=== PATIENT | female | born 1995 | race Hispanic/Latino ===

== ENCOUNTER 2024-01-28 15:27 | Emergency (ER) | payer OTHER, SELFPAY ==
[2024-01-28 15:36] VITALS: BP 123/82
[2024-01-28 16:27] VITALS: BP 113/68
[2024-01-28 16:32] VITALS: BMI 25.0
--- NOTE | 2024-01-28 16:39 | ED.GENMED ---
History of Present Illness
General
Chief Complaint: Heart Rate Problem
Source: patient
Time Seen by Provider: 01/28/24 16:26
History of Present Illness
History of Present Illness:
28yoF with no significant past medical history presenting for evaluation of chest pain. Symptoms began yesterday. She reports a constant central chest pressure with intermittent sharp pains that last a second or two before resolving. Nothing seems
to make the pain worse but the pain seems to improve if she puts pressure on the chest. She had some palpitations and shortness of breath last night. She checked her Apple Watch which indicated that she was in atrial fibrillation. She has checked
the monitor several other times and the rest of the readings have been normal. She denies any dizziness or syncope. Patient was seen by a senior administrative services officer about 2 months ago for palpitations and EKG was normal at that time. No additional testing was
performed.
Phy Exam
General Physical Exam
General Presentation: well appearing and no apparent distress
General age: appears stated age
General Skin: warm and dry
General Habitus: normal
General Mental: alert
Cardiovascular Exam
Cardiovascular Exam: regular rate/rhythm, no edema and no murmur
Pulmonary Exam
Pulmonary Exam: lungs clear, no respiratory distress, no crackles, no wheezing and decreased breath sounds
Skin Exam
Skin Exam: normal color and warm/dry
Psychiatric Exam
Psychiatric Exam: normal mood/affect
Course
Orders/Labs/Results
Orders:
Orders
01/28/24 15:29
Electrocardiogram (*1) Urgent
Reason for Study: Chest Pain
EKG- Treatment ONCE
01/28/24 16:37
Electrocardiogram (*1) Urgent
Reason for Study: Chest Pain
EKG- Treatment ONCE
01/28/24 16:38
Cardiac Monitoring- Treatment ONCE
0.9% Sodium Chloride 1000 ml [Nss] 1,000 ml IV BOLUS
01/28/24 16:39
CR Chest - 2 Views Urgent
Comment:
Reason For Exam: CP
01/28/24 16:48
Complete Blood Count/With Diff Urgent
Comprehensive Metabolic Panel Urgent
Magnesium Urgent
TSH Reflex To Free T4 Urgent
Troponin I Urgent
Abnormal Lab Results
01/28/24
16:48
RBC 4.06 L 10^6/uL
(4.20-5.40)
Hct 35.3 L %
(37.0-47.0)
MPV 10.5 H fL
(7.4-10.4)
Absolute Monos (auto) 0.7 H 10^3/uL
(0.1-0.6)
Eosinophils % 6.5 H %
(0-6)
01/28/24 16:48
01/28/24 16:48
Vital Signs
Initial and Last Documented VS:
Initial Vital Signs
Temp Pulse Resp BP Pulse Ox
98.2 F 74 16 123/82 99
01/28/24 15:36 01/28/24 15:36 01/28/24 15:36 01/28/24 15:36 01/28/24 15:36
Last Documented Vital Signs
Temp Pulse Resp BP Pulse Ox
98.2 F 61 19 112/75 99
01/28/24 15:36 01/28/24 18:45 01/28/24 18:45 01/28/24 18:00 01/28/24 18:45
MDM/Problems Addressed
Differential Diagnosis Includes:
28yoF here with chest pain x 1 day. Had an episode of palpitations and SOB overnight. Apple Watch indicated afib. No other episodes of afib documented. No personal or family history of heart disease. She is afebrile and hemodynamically stable. She
is well appearing in no distress. HR 74 on arrival. Normal sinus rhythm noted on monitor. Differential diagnosis includes but is not limited to: Arrhythmia, thyroid dysfunction, electrolyte abnormality, doubt ACS
Initial ED plan: Check cardiac labs, magnesium, TSH, EKG, and chest x-ray. IV fluid bolus.
*EKG
Interpreted by ED Provider?: Yes
EKG Intrepretation Date: 01/28/24
Heart Rate: 63
Rate: normal
Rhythm: sinus
[place]: normal axis
Interval: normal interval
QRS Pattern: normal QRS
Ischemia: no ischemia
*Critical Care Note
Total Time (30-74mins, 75-104mins- exclusive of procedures): Not Applicable
Update Note
Update Note:
Labs overall unremarkable including normal electrolytes and TSH. EKG shows normal sinus rhythm without ischemic changes or ectopy and troponin is within normal limits. Chest x-ray clear. Telemetry reviewed and no episodes occurred during ED stay.
Apple Watch recording reviewed and no obvious afib noted. No indication for admission at this time. She was encouraged to f/u outpatient with cardiology. ED return precautions discussed. She was discharged in stable condition.
ED Attending Note
-
Portions of this chart may have been created with voice recognition software.� Occasional wrong word or��sound alike� substitutions may have occurred due to the inherent limitations of voice recognition software.
Discharge Plan
Departure
Patient Disposition: Home (Routine Discharge)
Date of Disposition: 01/28/24
Time of Disposition: 18:45
Patient with high blood pressure during this ER visit?: No
Discharge Problem:
Chest pain, Palpitations
Instructions: Chest pain
Prescriptions:
No Action
PNV cmb#95-ferrous fumarate-FA [] 1 EACH tablet
1 ea PO DAILY
ferrous sulfate [iron] 325 MG tablet
325 mg PO TID
acetaminophen 325 MG tablet
650 mg PO Q4HPRN PRN (Reason: mild pain) 0RF
ibuprofen 600 MG tablet
600 mg PO Q4HPRN PRN (Reason: cramps) 0RF
Referrals:
NONE,* [Family Provider] -
Sangrigoli,Ren M., MD [Active] -
Activity Restrictions/Additional Instructions:
Please call on Tuesday to schedule a follow-up with cardiology. Return to the ER with any new or worsening symptoms.
Interventions
Interventions:
*Risk Screen - Suicide Last Done: 01/28/24 16:40
*General Assessment Last Done: 01/28/24 16:40
*Neglect/Abuse Screening Last Done: 01/28/24 16:40
ED- Fall Risk Assessment Last Done: 01/28/24 16:40
*ED COVID-19 Vaccine History Last Done: 01/28/24 18:59
*Nursing Disposition Last Done: 01/28/24 18:59
ED- Cardiac Assessment Last Done: 01/28/24 16:40
ED- Pulmonary Assessment Last Done: 01/28/24 16:40
Discharge Date and Time
Discharge Date/Time: 01/28/24 18:59
Print Language: ITALIAN
[2024-01-28] MEDS: NSS 1000 IV (16:46)
[2024-01-28 17:00] VITALS: BP 108/69
[2024-01-28 17:26] LABS: % Basophils 0.6 % (0-2); % Eosinophils 6.5 % (0-6); % Immature Granulocytes 0.2 % (0-0.5); % Lymphocytes 33.9 % (20.5-51.1); % Monocytes 7.8 % (1.7-9.3); Absolute Basophils 0.1 10^3/uL (0-0.2); Absolute Eosinophils 0.6 10^3/uL (0-0.7); Absolute Lymphocytes 2.9 10^3/uL (1.2-3.4); Absolute Monocytes 0.7 10^3/uL (0.1-0.6); Absolute Neutrophils 4.3 10^3/uL (1.4-6.5); Hematocrit 35.3 % (37.0-47.0); Hemoglobin 12.2 g/dL (12.0-16.0); Mean Corp Hgb Conc. 34.6 g/dL (33.0-37.0); Mean Corpuscular Volume 86.9 fL (81.0-99.0); Mean Platelet Volume 10.5 fL (7.4-10.4); Nucleated Red Blood Cells % 0 %; Platelet Count 279 10^3/uL (130-400); Red Blood Cell Count 4.06 10^6/uL (4.20-5.40); Red Cell Dist. Width 12.7 % (11.5-14.5); White Blood Cell Count 8.5 10^3/uL (4.8-10.8)
[2024-01-28 17:40] LABS: ALT (SGPT) 15 U/L (0-35); AST (SGOT) 27 U/L (14-36); Albumin 4.6 g/dl (3.5-5.0); Alkaline Phosphatase 55 U/L (38-126); Blood Urea Nitrogen 17 mg/dl (7-17); Calcium 9.5 mg/dl (8.4-10.2); Carbon Dioxide 26 mmol/L (22-30); Chloride 102 mmol/L (98-107); Estimated Creatinine Clearance 84 ml/min; Glucose 89 mg/dl (70-99); Magnesium 2.1 mg/dl (1.6-2.3); Potassium 4.5 mmol/L (3.5-5.1); Sodium 135 mmol/L (135-145); Total Bilirubin 0.8 mg/dl (0.2-1.3); Total Protein 7.2 g/dl (6.3-8.2); eGFR > 60.00
[2024-01-28 17:51] LABS: Troponin I < 0.012 ng/ml
[2024-01-28 18:00] VITALS: BP 112/75
[2024-01-28 18:12] LABS: TSH Reflex To Free T4 1.76 uIU/ml (0.47-4.68)
== END 2024-01-28 18:59 | disposition home or self-care (01) ==
LOC: EMR 15:27
PROVIDERS: Physician Assistant; EMERGENCY PHYSICIAN Emergency Medicine
DX: R07.89 Other chest pain (principal); R00.2 Palpitations; R06.02 Shortness of breath
CPT/HCPCS: 99284; 96360; 71046; 80053; 83735; 84443; 84484; 85025; 93005

== ENCOUNTER 2024-10-24 01:17 | Emergency (ER) | payer OTHER, SELFPAY ==
[2024-10-24 01:20] VITALS: BP 129/76
[2024-10-24 01:47] LABS: % Basophils 0.8 % (0-2); % Eosinophils 5.3 % (0-6); % Immature Granulocytes 0.2 % (0-0.5); % Lymphocytes 25.4 % (20.5-51.1); % Monocytes 9.9 % (1.7-9.3); % Neutrophils 58.4 % (42.2-75.2); Absolute Basophils 0.1 10^3/uL (0-0.2); Absolute Eosinophils 0.4 10^3/uL (0-0.7); Absolute Lymphocytes 1.7 10^3/uL (1.2-3.4); Absolute Monocytes 0.7 10^3/uL (0.1-0.6); Absolute Neutrophils 3.9 10^3/uL (1.4-6.5); Hematocrit 33.9 % (37.0-47.0); Hemoglobin 11.5 g/dL (12.0-16.0); Mean Corp Hgb Conc. 33.9 g/dL (33.0-37.0); Mean Corpuscular Volume 91.4 fL (81.0-99.0); Mean Platelet Volume 10.3 fL (7.4-10.4); Nucleated Red Blood Cells % 0 %; Platelet Count 261 10^3/uL (130-400); Red Blood Cell Count 3.71 10^6/uL (4.20-5.40); White Blood Cell Count 6.6 10^3/uL (4.8-10.8)
[2024-10-24 02:01] LABS: ALT (SGPT) 16 U/L (0-35); AST (SGOT) 21 U/L (14-36); Albumin 4.8 g/dl (3.5-5.0); Alkaline Phosphatase 37 U/L (38-126); Blood Urea Nitrogen 19 mg/dl (7-17); Calcium 8.9 mg/dl (8.4-10.2); Carbon Dioxide 25 mmol/L (22-30); Chloride 107 mmol/L (98-107); Glucose 104 mg/dl (70-99); Potassium 3.5 mmol/L (3.5-5.1); Sodium 141 mmol/L (135-145); Total Protein 7.3 g/dl (6.3-8.2); eGFR > 60.00
[2024-10-24 02:04] LABS: HCG, Serum Qualitative Screen Negative
[2024-10-24 02:08] VITALS: BP 96/52
[2024-10-24 02:39] LABS: TSH Reflex To Free T4 2.61 uIU/ml (0.47-4.68)
[2024-10-24 03:00] VITALS: BP 105/62
--- NOTE | 2024-10-24 04:10 | ED.GENMED ---
History of Present Illness
General
Chief Complaint: Heart Rate Problem
Source: patient
Exam Limitations: none
Time Seen by Provider: 10/24/24 03:19
Nursing documentation reviewed up to this point in time: agreed with
History of Present Illness
History of Present Illness:
Pleasant 29-year-old female presents to the emergency department with tachycardia. She states that she awakened with a racing heart. She felt that she was going to pass out. Patient denies any previous cardiac history. She has had 2 C-sections
and her wisdom teeth removed. She states that she has been going to the gym. She recently switched from Ozempic to Zepbound to lose an additional 15 pounds. Denies any thyroid issues. Reports no family history of cardiac issues. Denies tobacco,
alcohol excess or any drug use. Reports no current symptoms at this time.
Review of Systems
Review of Systems
Allergies reviewed?: Yes
Other source history: family
All Other Systems: ROS reviewed and negative except as documented in HPI and ROS
Constitutional: Reports sleep disturbance
EENT: Reports no symptoms
Respiratory: Reports no symptoms
Cardiac: Reports palpitations; Denies chest pain
ABD/GI: Reports no symptoms
: Reports no symptoms
Musculoskeletal: Reports no symptoms
Skin: Reports no symptoms
Neurological: Reports no symptoms
Endocrine: Reports no symptoms
Hematologic/Lymphatic: Reports no symptoms
Psychiatric: Reports no symptoms
Phy Exam
General Physical Exam
General Presentation: well appearing and no apparent distress
General Skin: warm and dry
General Habitus: normal
General Mental: alert
General Hydration: appears well hydrated
ENT Exam
ENT Exam: EOMI, pharynx normal, neck supple and normocephalic
Eye Exam
Eye Exam: PERRL, cornea clear and conjunctiva normal
Cardiovascular Exam
Cardiovascular Exam: regular rate/rhythm, no edema, no murmur and normal peripheral pulses
Pulmonary Exam
Pulmonary Exam: lungs clear, no respiratory distress, no rales, no crackles, no rhonchi, no stridor, no wheezing and no cough
Gastrointestinal Exam
Gastrointestinal Exam: normal bowel sounds, non tender, soft, no organomegaly, no pulsatile mass and non distended
Neurological Exam
Neurological Exam: alert, oriented x3, no motor deficits and speech normal
Musculoskeletal Exam
Musculoskeletal Exam: full ROM and no edema
Skin Exam
Skin Exam: normal color, warm/dry, no rash, no petechia and other (Tattoo left upper back)
Psychiatric Exam
Psychiatric Exam: normal mood/affect
Course
Orders/Labs/Results
Orders:
Orders
10/24/24 01:23
Electrocardiogram (*1) Urgent
Reason for Study: Tachycardia
10/24/24 01:24
EKG- Treatment ONCE
Test Result ONCE
10/24/24 01:31
Complete Blood Count/With Diff Urgent
Comprehensive Metabolic Panel Urgent
HCG, Serum Qualitative Screen Urgent
TSH Reflex To Free T4 Urgent
Comment: ADD ON
10/24/24 01:37
Add On- LAB Urgent
Tests Added?: tsh
10/24/24 03:21
CR Chest - 2 Views Urgent
Comment:
Reason For Exam: palpittations
Abnormal Lab Results
10/24/24
01:31
RBC 3.71 L 10^6/uL
(4.20-5.40)
Hgb 11.5 L g/dL
(12.0-16.0)
Hct 33.9 L %
(37.0-47.0)
Absolute Monos (auto) 0.7 H 10^3/uL
(0.1-0.6)
Monocytes % 9.9 H %
(1.7-9.3)
BUN 19 H mg/dl
(7-17)
Creatinine 1.1 H mg/dL
(0.6-1.0)
Glucose 104 H mg/dl
(70-99)
Alkaline Phosphatase 37 L U/L
(38-126)
10/24/24 01:31
10/24/24 01:31
Vital Signs
Initial and Last Documented VS:
Initial Vital Signs
Temp Pulse Resp BP Pulse Ox
98.4 F 87 18 129/76 99
10/24/24 01:20 10/24/24 01:20 10/24/24 01:20 10/24/24 01:20 10/24/24 01:20
Last Documented Vital Signs
Temp Pulse Resp BP Pulse Ox
98.4 F 87 18 129/76 99
10/24/24 01:20 10/24/24 01:20 10/24/24 01:20 10/24/24 01:20 10/24/24 01:20
*Critical Care Note
Total Time (30-74mins, 75-104mins- exclusive of procedures): Not Applicable
ED Attending Note
-
Portions of this chart may have been created with voice recognition software.� Occasional wrong word or��sound alike� substitutions may have occurred due to the inherent limitations of voice recognition software.
Discharge Plan
Departure
Patient Disposition: Home (Routine Discharge)
Date of Disposition: 10/24/24
Time of Disposition: 04:12
Patient with high blood pressure during this ER visit?: Yes
Condition: Good
Discharge Problem:
Palpitations
Instructions: Palpitations (DC), BLOOD PRESSURE
Prescriptions:
No Action
PNV cmb#95-ferrous fumarate-FA [] 1 EACH tablet
1 ea PO DAILY
ferrous sulfate [iron] 325 MG tablet
325 mg PO TID
acetaminophen 325 MG tablet
650 mg PO Q4HPRN PRN (Reason: mild pain) 0RF
ibuprofen 600 MG tablet
600 mg PO Q4HPRN PRN (Reason: cramps) 0RF
Referrals:
[facility] [Provider Group]
[facility] [Outside]
[facility] [Outside]
Activity Restrictions/Additional Instructions:
Thank You for choosing [facility].
It was a pleasure meeting you and taking part in your care. We hope for your continued healing and wellness.
Please read discharge instructions in their entirety. However, they are for general education and may not describe your exact diagnosis at discharge. Information on your ER visit and medical conditions were discussed with you along with appropriate
follow up information...
If indicated, please take your medications as instructed and indicated on discharge paperwork.
Please schedule a follow up appointment as directed. Call to schedule an appointment
Please return to the emergency department with ANY change in, persisting, or worsening of symptoms. If any of your symptoms do not improve, or persist, or become more severe within 6-12 hours, please return to the emergency department for further
care.
Please return to the emergency department if you develop a headache, neck pain/stiffness, fever greater than 100.4F, chest pain, shortness of breath, persistent nausea, vomiting, slurred speech, difficulty walking, numbness/tingling, weakness, signs
of infection or any other symptoms that are worrisome to you.
If you have any questions or concerns please do not hesitate to call the Hospital at or E-mail me directly at [email or web address]
Interventions
Interventions:
*Risk Screen - Suicide Last Done: 10/24/24 01:20
*General Assessment Last Done: 10/24/24 01:20
*Neglect/Abuse Screening Last Done: 10/24/24 01:20
*ED- Fall Risk Assessment Last Done: 10/24/24 01:23
*ED COVID-19 Vaccine History Last Done: 10/24/24 01:20
ED- Cardiac Assessment Last Done: 10/24/24 02:11
ED- Pulmonary Assessment Last Done: 10/24/24 02:11
Discharge Date and Time
Print Language: CONGOLESE
== END 2024-10-24 04:32 | disposition home or self-care (01) ==
LOC: EMR 01:17
PROVIDERS: EMERGENCY PHYSICIAN Student in an Organized Health Care Education/Training Program
DX: R00.2 Palpitations (principal); R55 Syncope and collapse; R03.0 Elevated blood-pressure reading, without diagnosis of hypertension; G47.9 Sleep disorder, unspecified; J45.909 Unspecified asthma, uncomplicated; Z98.890 Other specified postprocedural states
CPT/HCPCS: 99283; 71046; 80053; 84443; 84703; 85025; 93005